=== PATIENT | female | born 1980 | race Caucasian/White ===

== ENCOUNTER → 2017-11-15 07:30 | Outpatient (CLI) | payer MEDICAID ==
[~2017-11-15 07:30] MED LIST: LEXAPRO20 MG PO; OMEPRAZOLE40 MG PO; ZYRTEC10 MG PO
[2017-12-04 12:21] VITALS: BMI 33.9
== END | disposition home or self-care (01) ==
LOC: D.MRI 07:30
DX: M25.561 Pain in right knee (principal)

== ENCOUNTER 2017-12-04 08:35 | Day surgery (SDC) | payer MEDICAID ==
[2017-12-02 09:17] LABS: ANION GAP 10.7 mmol/L (8-16); CALCIUM 8.3 mg/dL (8.5-10.1); CARBON DIOXIDE 29.5 mmol/L (21.0-32.0); CREATININE - SERUM 0.9 mg/dL (0.6-1.3); POTASSIUM - SERUM 4.2 mmol/L (3.5-5.1)
[2017-12-02 09:28] LABS: BASOPHILS 0.2 % (0-2); EOSINOPHILS 3.8 % (0-7); HEMATOCRIT 38.2 % (36.0-48.0); HEMOGLOBIN 12.3 g/dL (12-16); IMMATURE GRANULOCYTES 0.4 % (0-5); LYMPHOCYTES 22.1 % (15-50); MCH 27.6 pg (26.0-34.0); MCHC 32.2 g/dL (31.0-37.0); MCV 85.7 fL (80.0-100.0); MEAN PLATELET VOLUME 10.3 fL (7.4-10.4); MONOCYTES 7.1 % (2-11); NEUTROPHILS 66.4 % (40-80); RBC 4.46 10x6/uL (4.00-5.40); RDW 15.1 % (11.5-14.5); WBC 8.2 10x3/uL (4.8-10.8)
[2017-12-02 09:37] LABS: PLATELET COUNT 236 10x3/uL (130-400)
[~2017-12-04] VITALS: Ht 157.5 cm; Wt 83.9 kg
[2017-12-04 12:21] VITALS: BP 121/71; Ht 157.5 cm; Wt 83.9 kg
[2017-12-04 12:33] LABS: HCG URINE NEGATIVE (NEGATIVE)
== END 2017-12-04 20:05 | disposition home or self-care (01) ==
LOC: D.OPS 08:35 → D.PAN 12:00 → D.OPS 12:00
PROVIDERS: Orthopaedic Surgery
DX: S83.511A Sprain of anterior cruciate ligament of right knee, initial encounter (principal); M25.861 Other specified joint disorders, right knee; M65.861 Other synovitis and tenosynovitis, right lower leg